=== PATIENT | male | born 1940 | race African-American/Black ===

== ENCOUNTER 2018-12-02 03:40 | Inpatient (IN) ==
--- NOTE | 2018-11-26 08:05 | EKG Report ---
Test Performed on : 11/26/2018 08:00:58 AM Test Reason : PAT Blood Pressure : / mmHG Vent. Rate : 089 BPM Atrial Rate : 089 BPM P-R Int : 168 ms QRS Dur : 092 ms QT Int : 362 ms P-R-T Axes : 056 087 007 degrees QTc Int : 440 ms Normal sinus rhythm. T wave abnormality, consider inferior ischemia Abnormal ECG No previous ECGs available Confirmed by Prosper WEBSTER, Itz Suresh ([id number]) on 11/26/2018 3:27:46 PM
[2018-11-26 08:17] LABS: URINE SOURCE CLEAN CATCH
[2018-11-26 08:55] LABS: BASO# 0.01 X1000 (0.0-0.2); BASO% 0.3 % (0.0-0.8); EOS# 0.05 X1000 (0.0-0.7); EOS% 1.4 % (0.0-10.0); HEMATOCRIT 43.4 % (42.0-52.0); LYMPH# 1.35 X1000 (1.2-3.4); LYMPH% 37.2 % (20.5-51.1); MCH 31.1 PG (27-31); MCHC 34.6 g/dL (33-37); MONO# 0.67 X1000 (0.11-0.59); MONO% 18.5 % (1.7-9.3); NEUT# 1.55 X1000 (1.4-6.5); NEUT% 42.6 % (42.2-75.2); PLT 277 X1000 (130-400); RBC 4.82 XMIL (4.7-6.1); RDW 12.9 % (11.5-14.5); WBC 3.63 X1000 (4.8-10.8)
[2018-11-26 08:56] LABS: BILIRUBIN URINE NEGATIVE (NEGATIVE); BLOOD URINE NEGATIVE (NEGATIVE); COLOR ORANGE; GLUCOSE URINE NEGATIVE (NEGATIVE); KETONE URINE NEGATIVE (NEGATIVE); LEUKOCYTES URINE SMALL (NEGATIVE); NITRITE URINE NEGATIVE (NEGATIVE); PH URINE 6.5; PROTEIN URINE NEGATIVE (NEGATIVE); SP GRAVITY URINE 1.016; TURBIDITY URINE CLEAR (CLEAR); UROBILINOGEN URINE 2 mg/dL (NORMAL)
[2018-11-26 08:59] LABS: UR EPITHELIAL CELLS <10 /HPF (<10); URINE BACTERIA NEGATIVE /HPF; URINE RBC <10 /HPF (<10)
[2018-11-26 09:03] LABS: INR 0.91; PTT 30.5 Seconds (22.3-41.8)
[2018-11-26 09:20] LABS: AGAP 10; BUN 10 mg/dL (8-22); CALCIUM 9.6 mg/dL (8.8-10.2); CHLORIDE 99 mmol/L (98-107); COSMO 274; ESTIMATED GFR > 60; GLUCOSE 115 mg/dL (70-104); POTASSIUM 4.2 mmol/L (3.5-5.1); SODIUM 137 mmol/L (136-145); TCO2 28 mmol/L (25-35)
[2018-12-02] MEDS ORDERED: REGLAN ONE (07:44)
[2018-12-02] MEDS ORDERED: COLACE ONE (07:44)
[2018-12-02] MEDS ORDERED: PEPCID ONE (07:44)
[2018-12-02] MEDS ORDERED: LR 1,000 ML ONE (07:45)
[2018-12-02] MEDS ORDERED: LYRICA ONE (07:45)
[2018-12-02] MEDS ORDERED: CELEBREX ONE (07:45)
[2018-12-02] MEDS ORDERED: KEFZOL 1 GM/D5W 2 GM/100 ML IVPB ONE (07:45)
[2018-12-02] MEDS ORDERED: DIPRIVAN 1% ONE (08:29)
[2018-12-02] MEDS ORDERED: XYLOCAINE-MPF 2% ONE (08:30)
[2018-12-02] MEDS ORDERED: FENTANYL ONE (08:30)
[2018-12-02] MEDS ORDERED: DURAMORPH ONE (10:08)
[2018-12-02] MEDS ORDERED: NEOSPORIN G.U. IRRIGANT ONE (10:08)
[2018-12-02] MEDS ORDERED: CYKLOKAPRON 1,000 MG/NS 1,000 MG/100 ML IVPB ONE (10:08)
[2018-12-02] MEDS ORDERED: MARCAINE 0.25% PF ONE (10:08)
[2018-12-02] MEDS ORDERED: TORADOL ONE (10:08)
[2018-12-02] MEDS ORDERED: SODIUM CHLORIDE 0.9% ONE (10:08)
[2018-12-02] MEDS ORDERED: EXPAREL 1.3% ONE (10:08)
[2018-12-02 11:17] LABS: URINE SOURCE CATH
[2018-12-02 11:22] LABS: BILIRUBIN URINE NEGATIVE (NEGATIVE); BLOOD URINE NEGATIVE (NEGATIVE); COLOR ORANGE; GLUCOSE URINE NEGATIVE (NEGATIVE); KETONE URINE NEGATIVE (NEGATIVE); LEUKOCYTES URINE LARGE (NEGATIVE); NITRITE URINE NEGATIVE (NEGATIVE); PROTEIN URINE NEGATIVE (NEGATIVE); SP GRAVITY URINE 1.013; TURBIDITY URINE CLEAR (CLEAR); UROBILINOGEN URINE 2 mg/dL (NORMAL)
[2018-12-02 11:23] LABS: UR EPITHELIAL CELLS <10 /HPF (<10); URINE BACTERIA NEGATIVE /HPF; URINE RBC <10 /HPF (<10); URINE WBC 20-40 /HPF (<10)
[2018-12-02] MEDS ORDERED: DECADRON ONE (11:45)
[2018-12-02] MEDS ORDERED: OFIRMEV 1000 MG/ISOTONIC SOLN 1,000 MG/100 ML BOTTLE ONE (11:45)
[2018-12-02] MEDS ORDERED: ZOFRAN ONE (11:45)
[2018-12-02] MEDS ORDERED: NS 1,000 ML ONE (12:46)
[2018-12-02] MEDS ORDERED: OXY IR PO PRN ×2 (13:30)
[2018-12-02] MEDS ORDERED: ZOFRAN IV PRN (13:30)
[2018-12-02] MEDS ORDERED: MORPHINE IV PRN ×3 (13:30)
[2018-12-02] MEDS ORDERED: ZOFRAN ODT PO PRN (13:30)
[2018-12-02] MEDS ORDERED: NS 1,000 ML IV SCH (13:30)
--- NOTE | 2018-12-02 14:28 | OPERATIVE NOTE ---
PROCEDURE DATE: 12/02/2018 PREOPERATIVE DIAGNOSIS: Degenerative joint disease, right hip. POSTOPERATIVE DIAGNOSIS: Degenerative joint disease, right hip. PROCEDURE PERFORMED: Right anterior hip replacement. SURGEON: Jose Dupree MD. COATINGS INSPECTOR: Kia Red. MsJesús Red was necessary for proper retraction and manipulation of the leg during the case. ANESTHESIA: General. COMPLICATION: None. PROCEDURE IN DETAIL: This 78-year-old male presents for right anterior hip replacement. Risks, benefits and no guarantees were discussed and he is willing to proceed. He was taken to the operating room and satisfactory anesthesia obtained. He is transferred to the [place] table and the right hip prepped and draped in usual sterile fashion. A time out was taken to confirm operative site, procedure and patient. An anterior approach to the right hip was undertaken after prep and drape with an incision starting 1 cm distal and lateral to the anterior superior iliac spine and carried distally 12 cm over the tensor fascia dayna. Dissection was carried down through the subcutaneous fat to the fascia of the tensor fascia dayna. This was split in line with the incision. Blunt dissection along the inner membrane of the tensor was undertaken down the anterior hip capsule. Cobra retractors were placed over the superior and inferior aspect of the femoral neck and a capsulotomy incision made to expose the degenerative joint. At this point, the C-arm was used to portia an AP pelvis for leg length determination. A femoral neck osteotomy was made roughly 7 mm above the lesser trochanter and the femoral head removed. With care, a small Cobra retractor was placed directly on the anterior acetabular bone to protect the anterior neurovascular structures during reaming. Sequential reaming up to a 55 reamer was undertaken. Under fluoroscopic guidance, a DePuy [place] 58 outer diameter cup was impacted into the acetabulum in roughly 45 degrees of abduction and 10 to 15 degrees of anteversion. This had secure press-fit fixation. A 25 length screw was placed in the cup for additional security, followed by a 36 mm 0 degree inner diameter polyethylene bearing. The bearing cup interface and cup bone interface was checked and noted to be stable. Traction was released from the leg and the hip extended and externally rotated to facilitate broaching of the proximal femur. Sequential broaching of the femur was undertaken with the Multifondsuy active broach system up to a size 5 stem. A standard neck with a 1.5 neck length revealed good stability and denominational of her leg length on the images. Trial stem was removed and a size 5 standard collar neck DePuy active stem impacted in the proximal femur with secure axial and rotational stability. A 36 mm ceramic head with a 1.5 neck length was impacted onto this. The hip was reduced. No posterior instability was noted by flexing the hip up and internally rotating it. The hip was extended to the floor and externally rotated 75 degrees without any anterior instability. The wound was copiously irrigated with irrigant. Exparel was injected into the wound for pain management, followed by a Hemovac drain. The hip was closed over the drain with V-Loc suture in the fascia of the tensor fascia, 2-0 Vicryl in the subcutaneous and skin antonio on the skin edges. Sterile dressings completed the closure and the patient was recovered from anesthesia and transferred to recovery room in stable condition. No intraoperative complications were noted. Instrument count and sponge count was correct at time of closure. cc: Shahzad Dupree MD
[2018-12-02] MEDS ORDERED: PNEUMOVAX 23 IM ONE (16:15)
[2018-12-02] MEDS ORDERED: CYKLOKAPRON 1,000 MG in NS 100 ML IV ONE (16:25)
--- NOTE | 2018-12-02 16:34 | ORTHOPAEDICS PROGRESS NOTE ---
DATE: 12/02/2018 Mr. Evans is seen status post total hip replacement of the right hip. He has already been up with therapy. He is doing well at the present time. Vital signs are stable. He denies any significant pain. There is good function of both the femoral and sciatic nerves. We will plan on continuing mobilizing him and transferring him home when he is medically stable. cc: Shahzad Dupree MD
[2018-12-02] MEDS: HYDROCHLOROTHIAZIDE PO SCH (21:00)
[2018-12-02] MEDS: VASOTEC PO SCH (21:00)
[2018-12-02] MEDS: SEPTRA DS PO SCH (21:03)
[2018-12-02] MEDS: ULTRAM PO SCH (21:03)
[2018-12-02] MEDS: CELEBREX PO SCH (21:04)
[2018-12-02] MEDS: KEFZOL 2 GM/D5W 2 GM/50 ML IVPB IV SCH (21:05)
[2018-12-02] MEDS: PERIDEX MT SCH (21:06)
[2018-12-03] MEDS: KEFZOL 2 GM/D5W 2 GM/50 ML IVPB IV SCH (04:55)
[2018-12-03] MEDS: ULTRAM PO SCH (06:05)
[2018-12-03] MEDS ORDERED: NORCO-10 PO PRN (06:58)
[2018-12-03 07:30] VITALS: BP 108/57
[2018-12-03] MEDS: SEPTRA DS PO SCH (08:40)
[2018-12-03] MEDS: CELEBREX PO SCH (08:42)
[2018-12-03] MEDS: VASOTEC PO SCH (08:43)
[2018-12-03] MEDS: PERIDEX MT SCH (08:43)
[2018-12-03] MEDS: HYDROCHLOROTHIAZIDE PO SCH (08:43)
[2018-12-03] MEDS ORDERED: NEURONTIN PO SCH (09:00)
[2018-12-03] MEDS ORDERED: PEPCID PO SCH (09:00)
[2018-12-03] MEDS ORDERED: NORVASC PO SCH (09:00)
[2018-12-03] MEDS ORDERED: KLOR-CON PO SCH (09:00)
[2018-12-03] MEDS ORDERED: ASPIRIN PO SCH (09:00)
[2018-12-03 09:19] LABS: HEMOGLOBIN 10.9 g/dL (14.0-18.0)
[2018-12-03 09:21] LABS: AGAP 9; BUN 16 mg/dL (8-22); CALCIUM 8.3 mg/dL (8.8-10.2); CHLORIDE 102 mmol/L (98-107); COSMO 276; CREATININE 1.1 mg/dL (0.7-1.2); ESTIMATED GFR > 60; GLUCOSE 147 mg/dL (70-104); SODIUM 136 mmol/L (136-145); TCO2 25 mmol/L (25-35)
--- NOTE | 2018-12-03 22:27 | DISCHARGE SUMMARY ---
ADMISSION DATE: 12/02/2018 DISCHARGE DATE: 12/03/2018 ADMITTING DIAGNOSIS: Degenerative joint disease, right hip. DISCHARGE DIAGNOSIS: Degenerative joint disease, right hip, status post right anterior hip replacement. PROCEDURES: On 12/02/2018, Dr. Dupree performed a right anterior hip replacement. HOSPITAL COURSE: Mr. Evans is a 78-year-old male who presented for right anterior hip replacement. Risks, benefits, and no guarantees were discussed and he wished to proceed. He was taken to the operating room, and satisfactory anesthesia was obtained. He tolerated the procedure well and was transferred to the recovery room. After satisfactory recovery, he was transferred to [address] [place] [address]. He has had an uneventful postoperative course. His current vital signs are temperature 98.4 degrees, pulse 76, blood pressure 108/57 and his O2 sats are 97% on room air. DISCHARGE LABORATORY: Hemoglobin and hematocrit 10.9 and 32, down from 15 and 43.4. His BUN and creatinine is a 16 and 1.1. He has been up and walked with therapy. He was able to mobilize well and had good pain control. He is doing well at this time, and ready to go home. DISCHARGE MEDICATIONS: Warners 10 mg p.o. 1 to 2 tabs every 4 to 6 hours as needed for pain, Norvasc 10 mg p.o. daily, aspirin 325 mg p.o. daily, Celebrex 200 mg p.o. b.i.d., Vasotec 10 mg p.o. b.i.d. He is going to check his blood pressure before taking that. Pepcid 20 mg p.o. daily, Neurontin 100 mg p.o. daily, hydrochlorothiazide 25 mg p.o. b.i.d., doxycycline 100 mg p.o. b.i.d. x7 days. DISCHARGE DISPOSITION: Mr. Evans is being discharged home to self-care. He will have home health available and home physical therapy. He has a at the bedside. We discussed incision care. He can shower and let soapy water run over the incision, but no tub baths. He knows to keep that area nice and dry. He is going to continue to work with physical therapy and mobilize. He will follow up with Dr. Dupree in 10 to 12 days and get his antonio out. Should he have any questions or concerns, he is welcome to call the office. Dictated by DAYANA Farris for Shahzad Dupree MD cc: DAYANA Farris MD
== END 2018-12-03 11:58 | disposition home health service (06) | DRG 470 ==
LOC: SURHOLD 03:40 → 4N 10:42
PROVIDERS: ADMIT Orthopaedic Surgery Adult Reconstructive Orthopaedic Surgery; ATTEND Orthopaedic Surgery Adult Reconstructive Orthopaedic Surgery
CPT/HCPCS: 76000; 80048; 81001; 85014; 85018; 85025; 85610; 85730; 86850; 86900; 86901; 87088; 88304; 88311; 90732; 94761; 94799; 97110; 97116; 97162; 97530; A9270; C9290; J0131; J0690; J1100; J1885; J2274; J2275; J2405; J3010; J7030; J7120; Q9974; S0020